=== PATIENT | female | born 1965 | race Caucasian/White ===

== ENCOUNTER 2016-05-26 18:53 | Emergency (ER) | payer MEDICAID ==
[~2016-05-26] VITALS: Ht 157.5 cm; Wt 88.5 kg
[~2016-05-26 18:53] MED LIST: PROTONIX40 MG PO; ZOFRAN ODT8 MG PO
[2016-05-26 19:43] VITALS: BP 121/86
--- NOTE | 2016-05-26 22:30 | NUR ---
TO ER BED 2
--- NOTE | 2016-05-26 22:33 | NUR ---
PT IS 50/F BIB TO ED WITH C/O ABSCESS TO RIGHT LATERAL BREAST, ABSCESS TO RIGHT THUMB. 8/10 PAIN . PT STATES NO MED HX. DENIES N/V/D; SKIN IS PINK/WARM/DRY; AAOX4 WITH EVEN AND STEADY GAIT; LUNGS CLEAR BL; HR EVEN AND REGULAR; PT DENIES ANY FEVER, CP, SOB, OR COUGH AT THIS TIME; PATIENT STATES PAIN OF 8/10 AT THIS TIME; VSS; PATIENT POSITIONED FOR COMFORT; HOB ELEVATED; BEDRAILS UP X2; BED DOWN. ER MD MADE AWARE OF PT STATUS.
[2016-05-26] MEDS ORDERED: LIDOCAINE 1% 500 MG/50 ML VIAL INJ ONE (23:05)
[2016-05-26] MEDS ORDERED: HYDROcodone/APAP 5/325 MG 1 TAB TAB PO ONE (23:10)
[2016-05-26 23:55] VITALS: BP 109/64
--- NOTE | 2016-05-26 23:56 | NUR ---
Patient discharged with v/s stable. Written and verbal after care instructions given and explained. Patient alert, oriented and verbalized understanding of instructions. Ambulatory with steady gait. All questions addressed prior to discharge. ID band removed. Patient advised to follow up with PMD. Rx of BACTRIM AND NAPROSYN given. Patient educated on indication of medication including possible reaction and side effects. Opportunity to ask questions provided and answered.
== END 2016-05-26 23:55 | disposition home or self-care (01) ==
LOC: MED 18:53
DX: L02.511 Cutaneous abscess of right hand (principal); N61.1 Abscess of the breast and nipple
CPT/HCPCS: 26010; 81002; 99283; J2001

== ENCOUNTER 2023-08-22 16:19 | Emergency (ER) | payer MEDICAID, OTHER ==
[~2023-08-22] VITALS: Ht 157.5 cm; Wt 78.2 kg
[2023-08-22 16:27] VITALS: BP 97/61; PULSE 89; RESP 16; TEMP 97.2; O2SAT 96
[2023-08-22 16:44] LABS: BASOPHILS % (AUTO) 0.3 % (0.0-2.0); HEMATOCRIT 43.3 % (36-48); LYMPHOCYTES # (AUTO) 1.4 K/uL (2.5-16.5); LYMPHOCYTES % (AUTO) 19.7 % (20.5-51.1); MEAN CORPUSCULAR HEMOGLOBIN 32 pg (27-31); MEAN CORPUSCULAR HGB CONC 35 g/dL (33-37); MEAN CORPUSCULAR VOLUME 93.3 fL (80-94); MONOCYTES # (AUTO) 0.8 K/uL (0.8-1.0); MONOCYTES % (AUTO) 10.8 % (1.7-9.3); NEUTROPHILS % (AUTO) 69.2 % (42.2-75.2); PLATELET COUNT (AUTO) 251 K/uL (140-450); RED BLOOD CELL COUNT(AUTO) 4.64 MIL/uL (4.20-5.40); RED CELL DISTRIBUTION WIDTH 14.2 % (11.6-13.7); WHITE BLOOD COUNT (AUTO) 7.2 K/uL (4.8-10.8)
[2023-08-22 17:02] LABS: CALCIUM 9.2 mg/dL (8.5-10.1); CARBON DIOXIDE 24.7 mmol/L (21-32); CREATININE 0.8 mg/dL (0.6-1.3); POTASSIUM 3.7 mmol/L (3.5-5.1)
[2023-08-22] MEDS ORDERED: PROM118S5 PO (17:57)
[2023-08-22] MEDS ORDERED: ACET-10509 PO (17:57)
[2023-08-22 18:15] VITALS: BP 133/78; PULSE 80; RESP 18; TEMP 98.2; O2SAT 99
[2023-08-22] MEDS: KETOROLAC 30 MG/ML VIAL IM ONE (18:15)
== END 2023-08-22 18:17 | disposition home or self-care (01) ==
LOC: MED 16:19
DX: J06.9 Acute upper respiratory infection, unspecified (principal); R07.81 Pleurodynia; B97.89 Other viral agents as the cause of diseases classified elsewhere; Z79.1 Long term (current) use of non-steroidal anti-inflammatories (NSAID); Z79.899 Other long term (current) drug therapy
CPT/HCPCS: 36415; 71045; 80048; 84484; 85025; 93005; 96372; 99285; J1885